=== PATIENT | male | born 1975 | race Caucasian/White ===

== ENCOUNTER 2017-09-02 13:45 | Emergency (ER) | payer MEDICAID, MEDICARE ==
[~2017-09-02] VITALS: Ht 167.6 cm; Wt 59.8 kg
[2017-09-02 13:55] VITALS: BP 140/84
[2017-09-02] MEDS ORDERED: IBUPROFEN 200 MG TABLET PO ONE (14:30)
[2017-09-02] MEDS ORDERED: IBUPROFEN 200 MG TABLET ONE (15:03)
== END 2017-09-02 15:15 | disposition home or self-care (01) ==
LOC: ED 14:45
DX: M77.11 Lateral epicondylitis, right elbow (principal); M77.8 Other enthesopathies, not elsewhere classified; F17.200 Nicotine dependence, unspecified, uncomplicated; X50.3XXA Overexertion from repetitive movements, initial encounter; Y93.89 Activity, other specified; Y99.8 Other external cause status; Y92.69 Other specified industrial and construction area as the place of occurrence of the external cause
CPT/HCPCS: 99284